=== PATIENT | female | born 1990 | race Caucasian/White ===

== ENCOUNTER 2016-12-07 20:20 | Emergency (ER) | payer OTHER ==
[2016-12-07 20:25] VITALS: BP 124/72
--- NOTE | 2016-12-07 20:41 | UC ---
UC General HPI - HPI Summary HPI Summary: compliant of rash that started on her right leg approx 1 week ago since then has spread to her arms and right leg and chest extremely itchy sometimes rash gets bubbly and oozes clear fluid used calamine lotion, bnadrul and cortisone cream without relief denies fever denies any new foods, medications, soaps and detergents - History of Current Complaint Chief Complaint: UCSkin Stated Complaint: HIVES/RASH Hx Obtained From: Patient Hx Last Menstrual Period: 12/01/16 - Allergy/Home Medications Allergies/Adverse Reactions: Allergies Allergy/AdvReac Type Severity Reaction Status Date / Time Cefaclor [From Ceclor] Allergy Severe Hives Verified 08/25/15 20:27 Penicillins Allergy Severe Hives Verified 08/25/15 20:27 Sulfa Drugs Allergy Severe Difficulty Verified 08/25/15 20:27 Breathing Sulfamethoxazole Allergy Severe Anaphylatic Verified 08/25/15 20:27 w/Trimethoprim Shock [From Bactrim] PMH/Surg Hx/FS Hx/Imm Hx Previously Healthy: Yes Other History Of: Negative For: Anticoagulant Therapy - Surgical History Surgical History: Yes Surgery Procedure, Year, and Place: X2, lizette. TUBAL LIGATION - Family History Known Family History: Positive: Hypertension, Diabetes Negative: Cardiac Disease - Social History Occupation: Employed Full-time Lives: With Family Alcohol Use: Occasionally Substance Use Type: None Smoking Status (MU): Former Smoker Have You Smoked in the Last Year: No Household Exposure Type: Cigarettes - Immunization History Most Recent Influenza Vaccination: 2014 Most Recent Tetanus Shot: 2013 Most Recent Pneumonia Vaccination: na Review of Systems Constitutional: Negative Skin: Rash Eyes: Negative ENT: Negative Respiratory: Negative Cardiovascular: Negative Gastrointestinal: Negative Genitourinary: Negative Motor: Negative Neurovascular: Negative Musculoskeletal: Negative Neurological: Negative Psychological: Negative All Other Systems Reviewed And Are Negative: Yes Physical Exam Triage Information Reviewed: Yes Appearance: No Pain Distress, Well-Nourished, Obese Vital Signs: Initial Vital Signs Temp 98.4 F 12/07/16 20:23 Pulse 86 12/07/16 20:23 Resp 19 12/07/16 20:23 BP 124/72 12/07/16 20:23 Pulse Ox 100 12/07/16 20:23 Vital Signs Reviewed: Yes Eyes: Positive: Conjunctiva Clear ENT: Positive: Pharynx normal, TMs normal Neck: Positive: No Lymphadenopathy Respiratory: Positive: Lungs clear, Normal breath sounds, No respiratory distress, No accessory muscle use Cardiovascular: Positive: RRR, No Murmur, Pulses Normal, Brisk Capillary Refill Abdomen Description: Positive: Nontender, Soft Bowel Sounds: Positive: Present Musculoskeletal Exam: Normal Neurological Exam: Normal Psychological Exam: Normal Skin: Positive: rashes - erythematous rash with some clear vesicles on both legs arms and chest Course/Dx - Course Course Of Treatment: exam completed. rash apperasr to be contact dermatitis from poison jo. will start prednisone for treatment and will followup with PCP. will dispense benadryl for tonight until she can start prednisone in the morning - Differential Dx - Multi-Symptom Provider Diagnoses: contact dermatitis Discharge - Discharge Plan Condition: Stable Disposition: HOME Prescriptions: predniSONE TAB* [Deltasone TAB*] 50 mg PO DAILY #5 tab Patient Education Materials: Poison Jo (ED) Referrals: Elijah Castellano MD [Primary Care Provider] - Additional Instructions: Please start prednisone as directed Increase fluids and rest Take acetaminophen or ibuprofen for fever or pain Please review your discharge instructions. If your symptoms do not improve please call your primary care provider or return to urgent care.
[2016-12-07] MEDS ORDERED: diPHENhydraMINE PO* 25 MG PO ONE ×2 (20:45→20:46)
== END 2016-12-07 21:08 | disposition home or self-care (01) ==
LOC: UCEAST 20:20
DX: L25.5 Unspecified contact dermatitis due to plants, except food (principal); Z72.0 Tobacco use
CPT/HCPCS: 99212; A9270-GY; G0463

== ENCOUNTER 2017-01-04 15:17 | Emergency (ER) | payer OTHER ==
--- NOTE | 2017-01-04 15:36 | UC ---
Upper Extremity HPI - HPI Summary HPI Summary: 26 YEAR OLD FEMALE PRESENTS WITH COMPLAINS OF LEFT ELBOW, HAND AND WRIST PAIN POST FALL. - History of Current Complaint Chief Complaint: UCUpperExtremity Stated Complaint: ARM INJURY Time Seen by Provider: 01/04/17 15:34 Hx Obtained From: Patient Hx Last Menstrual Period: one month ago Onset/Duration: Sudden Onset Severity Initially: Moderate Severity Currently: Moderate Pain Scale Used: 0-10 Numeric - 5 Character: Sharp Aggravating Factor(s): Movement, Lifting, Flexion Alleviating Factor(s): Nothing Associated Signs And Symptoms: Positive: Negative - Allergies/Home Medications Allergies/Adverse Reactions: Allergies Allergy/AdvReac Type Severity Reaction Status Date / Time Cefaclor [From Ceclor] Allergy Severe Hives Verified 01/04/17 15:31 Penicillins Allergy Severe Hives Verified 01/04/17 15:31 Sulfa Drugs Allergy Severe Difficulty Verified 01/04/17 15:31 Breathing Sulfamethoxazole Allergy Severe Anaphylatic Verified 01/04/17 15:31 w/Trimethoprim Shock [From Bactrim] PMH/Surg Hx/FS Hx/Imm Hx Previously Healthy: Yes Other History Of: Negative For: Anticoagulant Therapy - Surgical History Surgical History: Yes Surgery Procedure, Year, and Place: X2, lizette. TUBAL LIGATION - Family History Known Family History: Positive: Hypertension, Diabetes Negative: Cardiac Disease - Social History Alcohol Use: Occasionally Substance Use Type: None Smoking Status (MU): Former Smoker Have You Smoked in the Last Year: No Household Exposure Type: Cigarettes - Immunization History Most Recent Influenza Vaccination: 2014 Most Recent Tetanus Shot: 2013 Most Recent Pneumonia Vaccination: na Review of Systems Constitutional: Negative Skin: Negative Eyes: Negative ENT: Negative Respiratory: Negative Cardiovascular: Negative Gastrointestinal: Negative Genitourinary: Negative Motor: Negative Neurovascular: Negative Musculoskeletal: Other: - LEFT ELBOW PAIN LEFT WRIST PAIN LEFT HAND PAIN Neurological: Negative Psychological: Negative All Other Systems Reviewed And Are Negative: Yes Physical Exam Triage Information Reviewed: Yes Vital Signs: Initial Vital Signs Temp 36.7 C 01/04/17 15:26 Pulse 93 01/04/17 15:26 Resp 18 01/04/17 15:26 Pulse Ox 100 01/04/17 15:26 Eye Exam: Normal ENT Exam: Normal Dental Exam: Normal Neck exam: Normal Neck: Positive: 1 Respiratory Exam: Normal Cardiovascular Exam: Normal Abdominal Exam: Normal Musculoskeletal: Positive: Other: - LEFT ELBOW PAIN LEFT WRIST PAIN LEFT HAND PAIN Neurological Exam: Normal Psychological Exam: Normal Skin Exam: Normal Upper Extremity Course/Dx - Differential Dx/Diagnosis Provider Diagnoses: LEFT HAND, WRIST, AND ELBOW PAIN Discharge - Discharge Plan Condition: Stable Disposition: HOME Prescriptions: Meloxicam [Mobic] 7.5 mg PO BID PC #30 tab Patient Education Materials: Elbow Sprain (ED), Wrist Sprain (ED) Referrals: Zuhair Haas MD [Medical Doctor] - Elijah Castellano MD [Primary Care Provider] -
--- NOTE | 2017-01-04 16:22 | RAD ---
Indication: Left elbow injury. 4 views of left elbow demonstrates no fracture. No joint effusion is identified. No other fractures are noted. IMPRESSION: No fracture of the left elbow is noted.
--- NOTE | 2017-01-04 16:23 | RAD ---
Indication: Indication: Left wrist pain. 3 views of left wrist demonstrates no fracture. No other bone or joint abnormality is noted. IMPRESSION: No fracture of left wrist is noted.
--- NOTE | 2017-01-04 16:23 | RAD ---
Indication: Left hand pain. 4 views of left hand demonstrates no fracture. No other bone or joint abnormality is identified. IMPRESSION: No fracture of the left hand is noted.
== END 2017-01-04 16:38 | disposition home or self-care (01) ==
LOC: UCEAST 15:17
DX: M25.532 Pain in left wrist (principal); M79.642 Pain in left hand; M25.522 Pain in left elbow; Z88.3 Allergy status to other anti-infective agents; Z88.0 Allergy status to penicillin; Z88.2 Allergy status to sulfonamides; Z87.891 Personal history of nicotine dependence
CPT/HCPCS: 99213; G0463

== ENCOUNTER 2017-04-02 17:43 | Emergency (ER) | payer SELFPAY ==
[2017-04-02 17:53] VITALS: BP 124/71
--- NOTE | 2017-04-02 18:10 | UC ---
Lower Extremity/Ankle HPI - HPI Summary HPI Summary: Pt presents after falling at approx 1700. She tells me that she was preparing dinner while her children were playing in the other room. Apparently during this time one of the children had "flooded" the other room. When she went to investigate she slipped on the floor, twisted her left knee and ankle, and landed on her left knee and ankle. She did not hit her head or experience LOC. She was unable to get up off the floor, so she called her father who came and helped her and brought her to . She is unable to bear weight due to left knee pain. She denies previous injury to this extremity, numbness, or tingling. - History of Current Complaint Chief Complaint: UCLowerExtremity Stated Complaint: FALL Time Seen by Provider: 04/02/17 18:01 Hx Obtained From: Patient Hx Last Menstrual Period: 2months ago, hx of tubal ?: No Onset/Duration: Sudden Onset Severity Initially: Severe Severity Currently: Severe Pain Intensity: 8 Pain Scale Used: 0-10 Numeric Aggravating Factor(s): Standing, Ambulation Alleviating Factor(s): Rest, Ice Able to Bear Weight: No - Allergies/Home Medications Allergies/Adverse Reactions: Allergies Allergy/AdvReac Type Severity Reaction Status Date / Time Cefaclor [From Ceclor] Allergy Severe Hives Verified 04/02/17 17:51 Penicillins Allergy Severe Hives Verified 04/02/17 17:51 Sulfa Drugs Allergy Severe Difficulty Verified 04/02/17 17:51 Breathing Sulfamethoxazole Allergy Severe Anaphylatic Verified 04/02/17 17:51 w/Trimethoprim Shock [From Bactrim] PMH/Surg Hx/FS Hx/Imm Hx Previously Healthy: Yes Other History Of: Negative For: Anticoagulant Therapy - Surgical History Surgical History: Yes Surgery Procedure, Year, and Place: X2, liz[place]. TUBAL LIGATION - Family History Known Family History: Positive: Hypertension, Diabetes Negative: Cardiac Disease - Social History Occupation: Employed Full-time Lives: With Family Alcohol Use: Occasionally Substance Use Type: None Smoking Status (MU): Former Smoker Have You Smoked in the Last Year: No Household Exposure Type: Cigarettes - Immunization History Most Recent Influenza Vaccination: 2014 Most Recent Tetanus Shot: 2013 Most Recent Pneumonia Vaccination: na Review of Systems Constitutional: Negative Skin: Other - Abrasion to left knee Respiratory: Negative Cardiovascular: Negative Gastrointestinal: Negative Neurovascular: Negative Musculoskeletal: Decreased ROM - Left knee and ankle, Edema - Left knee and ankle, Other: - Pain Left knee and ankle Neurological: Negative Psychological: Negative All Other Systems Reviewed And Are Negative: Yes Physical Exam Triage Information Reviewed: Yes Completion Of Physical Exam Limited Due To: Other - Pain Appearance: Pain Distress, Obese Vital Signs: Initial Vital Signs Temp 98.7 F 04/02/17 17:46 Pulse 96 04/02/17 17:46 Resp 16 04/02/17 17:46 BP 124/71 04/02/17 17:46 Pulse Ox 100 04/02/17 17:46 Vital Signs Reviewed: Yes Neck: Positive: Supple, Nontender, No Lymphadenopathy, Other: - FROM. NTTP. Respiratory: Positive: Chest non-tender, Lungs clear, Normal breath sounds, No respiratory distress, No accessory muscle use Cardiovascular: Positive: RRR, No Murmur, Pulses Normal Musculoskeletal: Positive: Strength Limited @ - Left knee and ankle due to pain , ROM Limited @ - Left knee and ankle. Can flex and extend ~20 deg before pain. , Edema @ - Left knee and ankle, mild., Other: - Unable to performed specialized tests due to pain. No bovious bony deformities of knee or ankle. TTP medial left knee and medial left ankle. Neurological: Positive: Alert, Other: - Sensations intact L2-S1 Psychological: Positive: Age Appropriate Behavior Skin: Positive: Other - Approx 1.5cm diameter superficial abrasion to left anterior knee Lower Extremity Course/Dx - Course Course Of Treatment: XR left knee, leg, and ankle - soft tissue swelling ankle, otherwise negative. Ibuprofen 600mg here. Tdap updated today. Pt does not want anything stronger for pain and does not want time off work. Will send an rx for a knee brace for added support. - Differential Dx/Diagnosis Differential Diagnosis/HQI/PQRI: Contusion, Dislocation, Fracture (Closed), Sprain, Strain Provider Diagnoses: Left knee sprain. Left ankle sprain. Left knee abrasion. Fall Discharge - Discharge Plan Condition: Stable Disposition: HOME Prescriptions: Elastic Bandages & Supports [Knee Brace/Cushion/l/Xl/l] 1 mis XX ONCE PRN #1 mis PRN Reason: Pain Patient Education Materials: Ankle Sprain (ED), Knee Sprain (ED) Referrals: Elijah Castellano MD [Primary Care Provider] - Svitlana Gupta MD [Medical Doctor] - If Needed Additional Instructions: 1) Rest, Ice, and elevate your knee. Walk and weight bear as tolerated. 2) Ibuprofen 600mg every 6 hours as needed for pain 3) If your symptoms persist - please call orthopedics at the number below to schedule a follow up. If you develop a fever, SOB, chest pain, new or worsening symptoms - please call your PCP or go to the ED.
[2017-04-02] MEDS ORDERED: Ibuprofen TAB* 600 MG PO ONE (18:41)
[2017-04-02] MEDS ORDERED: Tetan/Diph/Pertus SYR(Tdap)* 0.5 ML SYR(BOOSTRIX) use SYR IM ONE ×2 (18:48→18:49)
--- NOTE | 2017-04-02 18:49 | RAD ---
INDICATION: Left ankle injury. TECHNIQUE: 3 views of the left ankle were obtained. FINDINGS: There is diffuse soft tissue swelling present. No fracture is seen. Joint spaces appear maintained. IMPRESSION: SOFT TISSUE SWELLING, NO FRACTURE IS SEEN. IF THE PATIENT'S SYMPTOMS PERSIST RECOMMEND FOLLOW-UP IMAGING.
--- NOTE | 2017-04-02 18:50 | RAD ---
INDICATION: Left lower leg injury. TECHNIQUE: 2 views of the left lower leg were obtained. FINDINGS: The bones are normal alignment. No fracture is seen. IMPRESSION: NO EVIDENCE OF FRACTURE.
--- NOTE | 2017-04-02 18:51 | RAD ---
INDICATION: Left knee injury. TECHNIQUE: 4 views of the left knee were obtained. FINDINGS: The bones are in normal alignment. No joint effusion or fracture is seen. Joint spaces appear maintained. IMPRESSION: NO EVIDENCE FOR FRACTURE.
== END 2017-04-02 19:18 | disposition home or self-care (01) ==
LOC: UCEAST 17:43
DX: S93.402A Sprain of unspecified ligament of left ankle, initial encounter (principal); S80.212A Abrasion, left knee, initial encounter; S83.92XA Sprain of unspecified site of left knee, initial encounter; W01.0XXA Fall on same level from slipping, tripping and stumbling without subsequent striking against object, initial encounter; Y93.01 Activity, walking, marching and hiking; Y92.009 Unspecified place in unspecified non-institutional (private) residence as the place of occurrence of the external cause; Y99.9 Unspecified external cause status; Z87.891 Personal history of nicotine dependence
CPT/HCPCS: 90471; 90715; 99212; A9270-GY; G0463

== ENCOUNTER 2017-07-23 19:48 | Emergency (ER) | payer OTHER ==
[2017-07-23 19:56] VITALS: BP 117/77
--- NOTE | 2017-07-23 19:58 | UC ---
Lower Extremity/Ankle HPI - HPI Summary HPI Summary: Pt presents with left foot pain. She tells me that 4 days ago she dropped a suitcase on the top of her left foot and has had pain since that time. She is able to ambulate, but has a mild limp due to pain. Has been taking ibuprofen with mild relief. Denies numbness or tingling. - History of Current Complaint Chief Complaint: UCLowerExtremity Stated Complaint: L FOOT PAIN Time Seen by Provider: 07/23/17 19:57 Hx Obtained From: Patient Hx Last Menstrual Period: one month ago Onset/Duration: Sudden Onset Severity Initially: Moderate Severity Currently: Moderate Pain Intensity: 6 Pain Scale Used: 0-10 Numeric Aggravating Factor(s): Standing, Ambulation Able to Bear Weight: Yes - Allergies/Home Medications Allergies/Adverse Reactions: Allergies Allergy/AdvReac Type Severity Reaction Status Date / Time cefaclor [From Ceclor] Allergy Hives Verified 07/23/17 19:57 Penicillins Allergy Hives Verified 07/23/17 19:57 sulfamethoxazole Allergy Anaphylatic Verified 07/23/17 19:57 [From Bactrim] Shock trimethoprim [From Bactrim] Allergy Anaphylatic Verified 07/23/17 19:57 Shock Home Medications: Home Medications NK [No Home Medications Reported] 07/23/17 [History Confirmed 07/23/17] PMH/Surg Hx/FS Hx/Imm Hx Previously Healthy: Yes Other History Of: Negative For: Anticoagulant Therapy - Surgical History Surgical History: Yes Surgery Procedure, Year, and Place: X2, lizette. TUBAL LIGATION - Family History Known Family History: Positive: Hypertension, Diabetes Negative: Cardiac Disease - Social History Occupation: Employed Full-time Lives: With Family Alcohol Use: Occasionally Substance Use Type: None Smoking Status (MU): Former Smoker Have You Smoked in the Last Year: No Household Exposure Type: Cigarettes - Immunization History Most Recent Influenza Vaccination: 2014 Most Recent Tetanus Shot: 2013 Most Recent Pneumonia Vaccination: na Review of Systems Constitutional: Negative Skin: Negative Respiratory: Negative Cardiovascular: Negative Gastrointestinal: Negative Neurovascular: Negative Musculoskeletal: Other: - Left foot pain Neurological: Negative Psychological: Negative All Other Systems Reviewed And Are Negative: Yes Physical Exam - Summary Physical Exam Summary: GENERAL: NAD. WDWN. No pain distress. SKIN: No rashes, sores, ulcers, masses, lesions. NECK: Supple. Nontender. No lymphadenopathy. CHEST: CTAB. No r/r/w. No accessory muscle use. Breathing comfortably and in no distress. CV: RRR. Without m/r/g. Pulses intact PT and DP. Brisk cap refill. MSK: Left dorsal midfoot TTP. No 5th MT pain. Strength 5/5. No edema or obvious bony deformities. Negative talar tilt. No increased laxity. Negative [place] test. NEURO: Alert. Sensations intact and symmetric B/L LEs PSYCH: Age appropriate behavior. Triage Information Reviewed: Yes Vital Signs: Initial Vital Signs Temp 98.8 F 07/23/17 19:52 Pulse 90 07/23/17 19:52 Resp 18 07/23/17 19:52 BP 117/77 07/23/17 19:52 Pulse Ox 100 07/23/17 19:52 Lower Extremity Course/Dx - Course Course Of Treatment: XR: IMPRESSION: NORMAL LEFT FOOT RADIOGRAPH WITHOUT SIGNIFICANT CHANGE WHEN COMPARED TO THE. MAY 20, 2012 FOOT RADIOGRAPH. Placed in CAM boot. Advised RICE and continue with ibuprofen. F/u with ortho if needed. - Differential Dx/Diagnosis Provider Diagnoses: Left foot contusion Discharge - Discharge Plan Condition: Stable Disposition: HOME Patient Education Materials: Foot Contusion (ED) Forms: *Work Release Referrals: Elijah Castellano MD [Primary Care Provider] - Gómez Solares MD [Medical Doctor] - If Needed Additional Instructions: If you develop a fever, shortness of breath, chest pain, new or worsening symptoms - please call your PCP or go to the ED. 1) Rest, Ice, and Elevate your foot as much as possible 2) May continue to take ibuprofen 600-800mg every 6-8hours as needed for pain and swelling 3) Use the walking boot for comfort 4) If your symptoms worsen or persist - please call Orthopedics at the number below to schedule a follow up appointment.
--- NOTE | 2017-07-23 20:36 | RAD ---
INDICATION: Left foot pain after dropping a suitcase on the foot for days earlier COMPARISON: Left foot radiograph dated May 20, 2012 TECHNIQUE: 3 views of the left foot were obtained. FINDINGS: The adequately corticated bones are properly aligned. Joint spaces appear maintained. The space between the first and second metatarsals measures up to 3.6 mm essentially unchanged since the May 20, 2012 foot radiograph. No fracture, dislocation or focal bony abnormality is seen. IMPRESSION: NORMAL LEFT FOOT RADIOGRAPH WITHOUT SIGNIFICANT CHANGE WHEN COMPARED TO THE MAY 20, 2012 FOOT RADIOGRAPH. If the patient's symptoms persist, follow-up imaging is recommended.
== END 2017-07-23 21:00 | disposition home or self-care (01) ==
LOC: UCEAST 19:48
DX: S90.32XA Contusion of left foot, initial encounter (principal); W20.8XXA Other cause of strike by thrown, projected or falling object, initial encounter; Y93.9 Activity, unspecified; Y92.9 Unspecified place or not applicable; Z88.1 Allergy status to other antibiotic agents; Z88.0 Allergy status to penicillin; Z88.2 Allergy status to sulfonamides; Z87.891 Personal history of nicotine dependence
CPT/HCPCS: 99211; G0463

== ENCOUNTER 2017-10-11 19:57 | Emergency (ER) | payer OTHER ==
[2017-10-11 20:33] VITALS: BP 127/71
[2017-10-11] MEDS ORDERED: Azithromycin TAB* 250 MG PO ONE (21:11)
--- NOTE | 2017-10-11 21:22 | UC ---
Throat Pain/Nasal [place] HPI - HPI Summary HPI Summary: PATIENT PRESENTS COMPLAINING OF SEVERAL DAYS OF SORE THROAT, PAIN WITH SWALLOWING AND COUGH. HAS HAD SEVERAL EPISODES OF POSTTUSSIVE VOMITING. IS CONCERNED ABOUT STREP IT IS GOING AROUND HER SON'S SCHOOL. SHE DENIES ANY FEVER OR EAR PAIN. - History of Current Complaint Chief Complaint: UCGeneralIllness Stated Complaint: COUGH,HEADACHE,DIZZY,CHILLS Time Seen by Provider: 10/11/17 20:52 Hx Obtained From: Patient Hx Last Menstrual Period: states irregular periods Onset/Duration: Gradual Onset, Lasting Days, Still Present Severity: Moderate Pain Intensity: 0 Pain Scale Used: 0-10 Numeric Cough: Nonproductive Associated Signs & Symptoms: Positive: Hoarseness, Vomiting. Negative: Fever - Allergies/Home Medications Allergies/Adverse Reactions: Allergies Allergy/AdvReac Type Severity Reaction Status Date / Time cefaclor [From Ceclor] Allergy Hives Verified 10/11/17 20:24 Penicillins Allergy Hives Verified 10/11/17 20:24 sulfamethoxazole Allergy Anaphylatic Verified 10/11/17 20:24 [From Bactrim] Shock trimethoprim [From Bactrim] Allergy Anaphylatic Verified 10/11/17 20:24 Shock PMH/Surg Hx/FS Hx/Imm Hx Previously Healthy: Yes Other History Of: Negative For: Anticoagulant Therapy - Surgical History Surgical History: Yes Surgery Procedure, Year, and Place: X2, lizette. TUBAL LIGATION - Family History Known Family History: Positive: Hypertension, Diabetes Negative: Cardiac Disease - Social History Alcohol Use: Occasionally Substance Use Type: None Smoking Status (MU): Former Smoker Have You Smoked in the Last Year: No Household Exposure Type: Cigarettes - Immunization History Most Recent Influenza Vaccination: 2014 Most Recent Tetanus Shot: 2013 Most Recent Pneumonia Vaccination: na Review of Systems Constitutional: Negative ENT: Sore Throat Respiratory: Cough Cardiovascular: Negative Gastrointestinal: Vomiting Neurological: Headache All Other Systems Reviewed And Are Negative: Yes Physical Exam Triage Information Reviewed: Yes Appearance: Well-Appearing, No Pain Distress, Well-Nourished Vital Signs: Initial Vital Signs Temp 98.1 F 10/11/17 20:24 Pulse 86 10/11/17 20:24 Resp 18 10/11/17 20:24 BP 127/71 10/11/17 20:24 Pulse Ox 100 10/11/17 20:24 Vital Signs Reviewed: Yes Eyes: Positive: Conjunctiva Clear ENT: Positive: Hearing grossly normal, Pharynx normal, TMs normal, Hoarse voice Neck: Positive: Supple, Nontender, No Lymphadenopathy Respiratory Exam: Normal Cardiovascular Exam: Normal Abdomen Description: Positive: Soft Musculoskeletal: Positive: No Edema Neurological: Positive: Alert Psychological: Positive: Age Appropriate Behavior Skin: Negative: rashes Diagnostics - Laboratory Diagnostic Studies Completed/Ordered: RAPID STREP POSITIVE Throat Pain/Nasal Course/Dx - Differential Dx/Diagnosis Provider Diagnoses: STREP PHARYNGITIS Discharge - Sign-Out/Discharge Documenting (check all that apply): Discharge/Admit/Transfer - Discharge Plan Condition: Stable Disposition: HOME Prescriptions: Azithromycin 250 mg PO DAILY #4 tablet Patient Education Materials: Strep Throat (ED) Forms: *Work Release Referrals: No Primary Care Phys,NOPCP [Primary Care Provider] - Additional Instructions: STREP TEST POSITIVE OTC CHLORASEPTIC OR CEPACOL LOZENGES AND/OR IBUPROFEN FOR SORE THROAT NEEDED ONCE SYMPTOMS RESOLVED - NEW TOOTHBRUSH DO NOT SHARE FOOD, DRINK, UTENSILS CALL THE NUMBER BELOW FOR ASSISTANCE IN ESTABLISHING WITH A PCP An additional resource available to assist in finding the appropriate physician for your health care needs is the [facility] ([facility]). You may contact them by calling [phone]. - Billing Disposition and Condition Condition: STABLE Disposition: Home
== END 2017-10-11 21:20 | disposition home or self-care (01) ==
LOC: UCEAST 19:57
DX: J02.0 Streptococcal pharyngitis (principal); Z88.1 Allergy status to other antibiotic agents; Z88.0 Allergy status to penicillin; Z88.2 Allergy status to sulfonamides; Z82.49 Family history of ischemic heart disease and other diseases of the circulatory system; Z83.3 Family history of diabetes mellitus; Z87.891 Personal history of nicotine dependence
CPT/HCPCS: 87651; 99202; A9270-GY; G0463

== ENCOUNTER 2017-11-21 12:30 | Emergency (ER) | payer OTHER ==
[2017-11-21 12:41] VITALS: BP 125/76
--- NOTE | 2017-11-21 13:25 | UC ---
Skin Complaint HPI - HPI Summary HPI Summary: 27 yo female c/o itching all over, progressively worse, starting in upper inner thighs. No fever / chills. No c/o mouth sores. No sob / cp. No GI sx. Denies vaginal discharge. [facility]en [facility] little over one week ago (d/ t menstrual abnormality, denies , + hx btl), reports no issues at that time, sx started a day or two later. No abd pain. - History of Current Complaint Chief Complaint: UCRash Stated Complaint: RASH Hx Obtained From: Patient Hx Last Menstrual Period: 08/2017, irregular Pain Intensity: 0 - Allergy/Home Medications Allergies/Adverse Reactions: Allergies Allergy/AdvReac Type Severity Reaction Status Date / Time cefaclor [From Ceclor] Allergy Hives Verified 11/21/17 12:36 Penicillins Allergy Hives Verified 11/21/17 12:36 sulfamethoxazole Allergy Anaphylatic Verified 11/21/17 12:36 [From Bactrim] Shock trimethoprim [From Bactrim] Allergy Anaphylatic Verified 11/21/17 12:36 Shock Home Medications: Home Medications diphenhydrAMINE HCl [Benadryl Allergy 25 MG CAP] 25 mg PO ONCE 11/21/17 [ History Confirmed 11/21/17] Review of Systems Constitutional: Negative Skin: Other - see hpi Eyes: Negative ENT: Negative Respiratory: Negative Cardiovascular: Negative Gastrointestinal: Negative Genitourinary: Negative Motor: Negative Neurovascular: Negative Musculoskeletal: Negative Neurological: Negative Psychological: Negative Is Patient Immunocompromised?: No All Other Systems Reviewed And Are Negative: Yes PMH/Surg Hx/FS Hx/Imm Hx Previously Healthy: Yes Other History Of: Negative For: Anticoagulant Therapy - Surgical History Surgical History: Yes Surgery Procedure, Year, and Place: X2, liz[place]. TUBAL LIGATION - Family History Known Family History: Positive: Unknown - unknown - adopted Negative: Cardiac Disease - Social History Alcohol Use: Occasionally Substance Use Type: None Smoking Status (MU): Former Smoker Have You Smoked in the Last Year: No Household Exposure Type: Cigarettes - Immunization History Most Recent Influenza Vaccination: 2014 Most Recent Tetanus Shot: 2013 Most Recent Pneumonia Vaccination: na Physical Exam Triage Information Reviewed: Yes Appearance: Well-Appearing - looks tired but NAD, Well-Nourished Vital Signs: Initial Vital Signs Temp 97.8 F 11/21/17 12:37 Pulse 79 11/21/17 12:37 Resp 18 11/21/17 12:37 BP 125/76 11/21/17 12:37 Pulse Ox 100 11/21/17 12:37 Vital Signs Reviewed: Yes Eye Exam: Normal ENT Exam: Normal - grossly normal. no akil sores. Neck exam: Normal - no pain c/o Respiratory Exam: Normal - no tachypnea, no dyspnea Cardiovascular Exam: Normal - heart rate regular, non-diaphoretic Abdominal Exam: Normal - nontender Pelvic Exam: Positive: Other - Declined pelvic exam. External exam noteworthy for dermatitis inner upper thighs. Vulva edematous, mild red, no visible sores. Clear - white discharge noted at external vaginal vault. Musculoskeletal Exam: Normal Neurological Exam: Normal - grossly nonfocal Psychological Exam: Normal - conversing easily and appropriately Skin Exam: Other - see pelvic. Several areas of dermatitis, c/w allergic type dermatitis (no dotes, ulcers, tracks, mac-pap, etc), mostly located abd wall fold, neck, face cheeks. Not c/w cellulitis. Course/Dx - Course Course Of Treatment: Declined internal pelvic exam. Suspect vaginitis, consider bact vaginosis. Will rx metrogel and diflucan. Re pruritus - medrol dose pack, d/w pt. D/w pt the need for f/u - fabi if worse or new problems. - Diagnoses Provider Diagnoses: Dermatitis. Vaginitis Discharge - Sign-Out/Discharge Documenting (check all that apply): Patient Departure - Discharge Plan Condition: Stable Disposition: HOME Prescriptions: Fluconazole 150 MG (NF) [Diflucan 150 mg (NF)] 150 mg PO DAILY #5 tab methylPREDNISolone [Medrol] 4 mg PO DAILY #1 tab.ds.pk metroNIDAZOLE VAGINAL 0.75%* 1 applic VAGINAL BEDTIME 7 Days #1 tube Patient Education Materials: Antihistamine (By mouth), Vaginitis (ED), General Allergic Reaction (ED) Referrals: [facility] [Outside] Melvin Horton MD [Medical Doctor] - Additional Instructions: Follow up with a primary care physician, if possible in the next month. 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 Seek medical attention for worse or new problems. - Billing Disposition and Condition Condition: STABLE Disposition: Home
== END 2017-11-21 13:52 | disposition home or self-care (01) ==
LOC: UCEAST 12:30
DX: L30.9 Dermatitis, unspecified (principal); N76.0 Acute vaginitis; Z88.0 Allergy status to penicillin; Z88.1 Allergy status to other antibiotic agents; Z88.2 Allergy status to sulfonamides; Z87.891 Personal history of nicotine dependence
CPT/HCPCS: 99212; G0463

== ENCOUNTER 2017-12-25 20:10 | Emergency (ER) | payer OTHER ==
[2017-12-25] MEDS ORDERED: Ibuprofen TAB* 400 MG PO ONE (21:14)
[2017-12-25] MEDS ORDERED: Ondansetron ODT TAB* 4 MG PO ONE (21:14)
[2017-12-25] MEDS ORDERED: oxyCODONE/Acetamin 5/325 MG* TAB PO ONE (21:14)
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
[2017-12-25 22:43] VITALS: BP 120/83
--- NOTE | 2017-12-26 07:53 | RAD ---
INDICATION: Lumbar level back pain COMPARISON: None. TECHNIQUE: 4 views of the lumbar spine were obtained. FINDINGS: The vertebra are in normal alignment. No fracture is seen. Disc spaces appear maintained. IMPRESSION: No evidence of fracture or subluxation. R1
== END 2017-12-25 23:07 | disposition home or self-care (01) ==
LOC: ED 20:10
DX: S06.0X9A Concussion with loss of consciousness of unspecified duration, initial encounter (principal); S33.5XXA Sprain of ligaments of lumbar spine, initial encounter; Z87.891 Personal history of nicotine dependence; W50.0XXA Accidental hit or strike by another person, initial encounter; Y93.64 Activity, baseball; Y92.9 Unspecified place or not applicable
CPT/HCPCS: 70450; 72100; 99283; A9270-GY

== ENCOUNTER 2018-05-17 18:28 | Emergency (ER) | payer OTHER ==
[2018-05-17 19:04] VITALS: BP 125/80
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
--- NOTE | 2018-05-18 10:48 | UC ---
- EKG/XRAY/CT Xray Comments: wet read correct Course/Dx - Diagnoses Provider Diagnoses: Left wrist tendonitis Discharge - Sign-Out/Discharge Documenting (check all that apply): Post-Discharge Follow Up All imaging exams completed and their final reports reviewed: Yes - Discharge Plan Condition: Stable Disposition: HOME Patient Education Materials: Tendinitis (ED) Referrals: Gómez Solares MD [Medical Doctor] - Chaya Laurent MD [Medical Doctor] - Additional Instructions: FOLLOW UP WITH SPORTS MEDICINE OR ORTHOPEDICS IF NOT COMPLETELY IMPROVED. GET RECHECKED FOR ANY WORSENING OF YOUR CONDITION OR QUESTIONS OR CONCERNS. THE RADIOLOGIST READING FOR YOUR X-RAY WILL BE DONE TOMORROW. IF THERE IS ANY CHANGE IN THE X-RAY, WE WILL CALL YOU WITH THE FINAL RESULTS. - Billing Disposition and Condition Condition: STABLE Disposition: Home
== END 2018-05-17 20:44 | disposition home or self-care (01) ==
LOC: UCEAST 18:28
DX: M65.842 Other synovitis and tenosynovitis, left hand (principal); Z88.1 Allergy status to other antibiotic agents; Z88.0 Allergy status to penicillin; Z88.2 Allergy status to sulfonamides; Z87.891 Personal history of nicotine dependence
CPT/HCPCS: 99212; G0463

== ENCOUNTER 2018-07-25 17:42 | Emergency (ER) | payer OTHER ==
[2018-07-25 18:51] VITALS: BP 141/83
[2018-07-25] MEDS ORDERED: Ibuprofen TAB* 600 MG PO ONE (18:54)
[2018-07-25] MEDS ORDERED: Silver Sulfadiazine 1%* 20 GM ONE (20:39)
[2018-07-25] MEDS ORDERED: Silver Sulfadiazine 1%* 20 GM TOPICAL ONE (20:57)
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
== END 2018-07-25 21:10 | disposition home or self-care (01) ==
LOC: UCEAST 17:42
DX: T21.22XA Burn of second degree of abdominal wall, initial encounter (principal); X10.2XXA Contact with fats and cooking oils, initial encounter; Y93.G3 Activity, cooking and baking; Y92.9 Unspecified place or not applicable; Z88.1 Allergy status to other antibiotic agents; Z88.0 Allergy status to penicillin; Z88.2 Allergy status to sulfonamides; Z87.891 Personal history of nicotine dependence
CPT/HCPCS: 16020; 99212; A9270-GY; G0463

== ENCOUNTER 2018-07-29 12:34 | Emergency (ER) | payer OTHER ==
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
[2018-07-29 13:15] VITALS: BP 102/60
== END 2018-07-29 13:18 | disposition home or self-care (01) ==
LOC: ED 12:34
DX: T21.22XD Burn of second degree of abdominal wall, subsequent encounter (principal); X10.2XXD Contact with fats and cooking oils, subsequent encounter; Z88.1 Allergy status to other antibiotic agents; Z88.0 Allergy status to penicillin; Z88.2 Allergy status to sulfonamides; Z87.891 Personal history of nicotine dependence
CPT/HCPCS: 99282

== ENCOUNTER 2018-08-16 17:25 | Emergency (ER) | payer OTHER ==
[2018-08-16 18:07] VITALS: BP 132/75
--- NOTE | 2018-08-16 18:32 | UC ---
Respiratory Complaint HPI - HPI Summary HPI Summary: Ms. Conner presents with cough and congestion for about a week. She is using her son's inhaler which helps. - History of Current Complaint Chief Complaint: UCRespiratory Stated Complaint: COUGH Hx Obtained From: Patient Hx Last Menstrual Period: 1 MONTH AGO Onset/Duration: Gradual Onset Severity Initially: Mild Severity Currently: Moderate Pain Intensity: 4 Character: Cough: Nonproductive Alleviating Factors: Bronchodilator Associated Signs And Symptoms: Positive: URI, Nasal Congestion - Allergies/Home Medications Allergies/Adverse Reactions: Allergies Allergy/AdvReac Type Severity Reaction Status Date / Time cefaclor [From Ceclor] Allergy Hives Verified 08/16/18 18:07 Penicillins Allergy Hives Verified 08/16/18 18:07 sulfamethoxazole Allergy Anaphylatic Verified 08/16/18 18:07 [From Bactrim] Shock trimethoprim [From Bactrim] Allergy Anaphylatic Verified 08/16/18 18:07 Shock PMH/Surg Hx/FS Hx/Imm Hx Previously Healthy: Yes Other History Of: Negative For: Anticoagulant Therapy - Surgical History Surgical History: Yes Surgery Procedure, Year, and Place: X2, liz[place]. TUBAL LIGATION - Family History Known Family History: Positive: Unknown - unknown - adopted, Hypertension, Diabetes Negative: Cardiac Disease - Social History Alcohol Use: Occasionally Substance Use Type: None Smoking Status (MU): Former Smoker Amount Used/How Often: 2 cig per day Have You Smoked in the Last Year: No Household Exposure Type: Cigarettes - Immunization History Most Recent Influenza Vaccination: 2014 Most Recent Tetanus Shot: 2013 Most Recent Pneumonia Vaccination: na Review of Systems All Other Systems Reviewed And Are Negative: Yes Constitutional: Positive: Negative ENT: Positive: Sore Throat, Nasal Discharge Respiratory: Positive: Cough Is Patient Immunocompromised?: No Physical Exam - Summary Physical Exam Summary: She is non-toxic in appearance with stable vitals. Triage Information Reviewed: Yes Appearance: Well-Appearing Vital Signs: Initial Vital Signs Temp 98.5 F 08/16/18 18:03 Pulse 86 08/16/18 18:03 Resp 16 08/16/18 18:03 BP 132/75 08/16/18 18:03 Pulse Ox 98 08/16/18 18:03 Vital Signs Reviewed: Yes ENT: Positive: Pharyngeal erythema, Nasal congestion, TMs normal, Sinus tenderness Neck exam: Normal Neck: Positive: Supple, Nontender, No Lymphadenopathy Respiratory Exam: Normal Cardiovascular Exam: Normal Respiratory Course/Dx - Course Course Of Treatment: Ms. Conner has a viral URI and I am going to treat her symptomatically. Since her son's inhaler has seem to help, I will give her one. - Differential Dx/Diagnosis Provider Diagnosis: URI (upper respiratory infection) Discharge - Sign-Out/Discharge Documenting (check all that apply): Patient Departure All imaging exams completed and their final reports reviewed: No Studies - Discharge Plan Condition: Stable Disposition: HOME Patient Education Materials: Upper Respiratory Infection (ED) Referrals: No Primary Care Phys,NOPCP [Primary Care Provider] - - Billing Disposition and Condition Condition: STABLE Disposition: Home
== END 2018-08-16 18:40 | disposition home or self-care (01) ==
LOC: UCEAST 17:25
DX: J06.9 Acute upper respiratory infection, unspecified (principal); Z88.1 Allergy status to other antibiotic agents; Z88.0 Allergy status to penicillin; Z88.2 Allergy status to sulfonamides; Z87.891 Personal history of nicotine dependence
CPT/HCPCS: 99212; G0463

== ENCOUNTER 2018-09-27 21:37 | Emergency (ER) | payer OTHER ==
--- NOTE | 2018-09-27 23:48 | ED ---
Lower Extremity - HPI Summary HPI Summary: 20-year-old female presents with complaints of right foot pain. States she was playing with her children 3 days ago and jumped off a playground structure from a height of about 2-3 feet and had sudden onset of pain to the lateral aspect of her right foot. States she was able to bear weight immediately after the injury however states pain has progressively worsened over the last couple of days making it difficult to bear weight. Denies any swelling, bruising, numbness , or tingling. - History of Current Complaint Chief Complaint: EDExtremitZakiya Stated Complaint: "RIGHT FOOT PAIN PER PT" Time Seen by Provider: 09/27/18 22:50 Hx Obtained From: Patient Hx Last Menstrual Period: 1 MONTH AGO Pain Intensity: 6 - Allergies/Home Medications Allergies/Adverse Reactions: Allergies Allergy/AdvReac Type Severity Reaction Status Date / Time cefaclor [From Ceclor] Allergy Hives Verified 09/27/18 21:45 Penicillins Allergy Hives Verified 09/27/18 21:45 Sulfa (Sulfonamide Allergy Anaphylatic Verified 09/27/18 21:45 Antibiotics) Shock sulfamethoxazole Allergy Anaphylatic Verified 09/27/18 21:45 [From Bactrim] Shock trimethoprim [From Bactrim] Allergy Anaphylatic Verified 09/27/18 21:45 Shock PMH/Surg Hx/FS Hx/Imm Hx Endocrine/Hematology History: Reports: Hx Anemia Denies: Hx Anticoagulant Therapy, Hx Blood Disorders, Hx Blood Transfusions, Hx Bone Marrow Disease, Hx Diabetes, Hx Systemic Lupus Erythematosus, Hx Sickle Cell Disease, Hx Thyroid Disease, Hx Unexplained Bleeding, Other Endocrine/ Hematological Disorders Cardiovascular History: Denies: Hx Hypertension, Hx Pacemaker/ICD Respiratory History: Reports: Hx Seasonal Allergies - on occasion Denies: Hx Asthma, Hx Chronic Obstructive Pulmonary Disease (COPD) GI History: Denies: Hx Ulcer History: Denies: Hx Renal Disease Musculoskeletal History: Denies: Hx Rheumatoid Arthritis, Hx Osteoporosis Sensory History: Reports: Hx Contacts or Glasses - wearing them at present Denies: Hx Hearing Aid Opthamlomology History: Reports: Hx Contacts or Glasses - wearing them at present Neurological History: Denies: Hx Dementia, Hx Developmental Delay, Hx Headaches, Hx Migraine, Hx Nerve Disease, Hx Seizures, Hx Spinal Cord Injury, Hx Transient Ischemic Attacks (TIA), Other Neuro Impairments/Disorders Psychiatric History: Reports: Hx Depression Denies: Hx Anxiety, Hx Attention Deficit Hyperactivity Disorder, Hx Eating Disorder, Hx Panic Disorder, Hx Post Traumatic Stress Disorder, Hx Inpatient Treatment, Hx Community Mental Health Tx, Hx Schizophrenia, Hx Bipolar Disorder , Hx Suicide Attempt, Hx of Violent Episodes Against Others, Hx Substance Abuse , Other Psychiatric Issues/Disorders - Surgical History Surgery Procedure, Year, and Place: X2, lizette. TUBAL LIGATION Hx Anesthesia Reactions: Yes - vomitting - Immunization History Date of Tetanus Vaccine: up to date per pt Infectious Disease History: No Infectious Disease History: Denies: Hx Clostridium Difficile, Hx Hepatitis, Hx Human Immunodeficiency Virus (HIV), Hx of Known/Suspected MRSA, Hx Shingles, Hx Tuberculosis, Hx Known/ Suspected VRE, Hx Known/Suspected VRSA, History Other Infectious Disease, Traveled Outside the [place] in Last 30 Days - Family History Known Family History: Positive: Unknown - unknown - adopted, Hypertension, Diabetes Negative: Cardiac Disease - Social History Occupation: Employed Full-time Lives: With Family Alcohol Use: Occasionally Substance Use Type: Reports: None Smoking Status (MU): Former Smoker Amount Used/How Often: 2 cig per day Have You Smoked in the Last Year: No Review of Systems Constitutional: Negative Cardiovascular: Negative Respiratory: Negative Gastrointestinal: Negative Genitourinary: Negative Musculoskeletal: Other - See HPI Negative: Bruising Neurological: Negative All Other Systems Reviewed And Are Negative: Yes Physical Exam - Summary Physical Exam Summary: GENERAL APPEARANCE: Well developed, well nourished, alert and cooperative, and appears to be in no acute distress. CARDIAC: Normal S1 and S2. No S3, S4 or murmurs. Rhythm is regular. There is no peripheral edema, cyanosis or pallor. Extremities are warm and well perfused. Capillary refill is less than 2 seconds. Peripheral pulses intact. LUNGS: Clear to auscultation without rales, rhonchi, wheezing or diminished breath sounds. ABDOMEN: Positive bowel sounds. Soft, nondistended, nontender. No guarding or rebound. No masses or hepatosplenomegally. MUSKULOSKELETAL: Normal muscular development. EXTREMITIES: Tenderness over the 4th and 5th metatarsals of the right foot without gross deformity, ecchymosis, or erythema. Right ankle non-tender with full ROM. Circulation and sensation intact. SKIN: Skin normal color, texture and turgor with no lesions or eruptions. Triage Information Reviewed: Yes Vital Signs On Initial Exam: Initial Vitals Temp Pulse Resp BP Pulse Ox 98.4 F 93 14 125/80 98 09/27/18 21:43 09/27/18 21:43 09/27/18 21:43 09/27/18 21:43 09/27/18 21:43 Vital Signs Reviewed: Yes Diagnostics - Vital Signs Vital Signs Temp Pulse Resp BP Pulse Ox 09/27/18 21:43 98.4 F 93 14 125/80 98 - Laboratory Lab Statement: Any lab studies that have been ordered have been reviewed, and results considered in the medical decision making process. - Radiology No standard instances Radiology Interpretation Completed By: ED Physician - No acute fracture Lower Extremity Course/Dx - Course Course Of Treatment: 20-year-old female presents with complaints of right foot pain. States she was playing with her children 3 days ago and jumped off a playground structure from a height of about 2-3 feet and had sudden onset of pain to the lateral aspect of her right foot. States she was able to bear weight immediately after the injury however states pain has progressively worsened over the last couple of days making it difficult to bear weight. Denies any swelling, bruising, numbness, or tingling. Afebrile. Vital signs stable. Patient had some mild tenderness to the lateral right foot over the fourth and fifth metatarsals without gross deformity, ecchymosis, or erythema. X-ray showed no acute fracture. Recommending conservative treatment for a right foot sprain. Patient was placed in a cam boot and provided crutches for progressive weightbearing. I'm also recommending [id number] analgesics and RICE. She is to follow-up with orthopedic surgery in 7 days if symptoms are not improving. Anticipatory guidance and warning signs reviewed with the patient. Verbalizes understanding and agrees with plan of care. - Diagnoses Differential Diagnosis/HQI/PQRI: Positive: Fracture (Closed), Sprain Provider Diagnoses: Right foot sprain Discharge - Sign-Out/Discharge Documenting (check all that apply): Patient Departure Patient Received Moderate/Deep Sedation with Procedure: No - Discharge Plan Condition: Stable Disposition: HOME Patient Education Materials: Foot Sprain (ED) Forms: *Work Release Referrals: No Primary Care Phys,NOPCP [Primary Care Provider] - Additional Instructions: The x-ray performed in the clinic today showed no evidence of a fracture. I suspect that you have a sprain of the foot. Rest the foot as much as possible. Wear the CAM boot that was applied in the emergency room for support until you are pain-free. You may walk and bear weight as tolerated. Use the crutches provided to slowly increase the amount of weight you put on the foot. Apply ice to the affected area for 15-20 minutes at least 4 times a day to help with the pain and swelling. Elevate the foot to help reduce swelling. Take acetaminophen (Tylenol) or ibuprofen (Advil, Motrin) according to directions as needed for pain. Follow up with orthopedic surgery in 7 days if symptoms do not improve. Seek immediate medical attention if you have severe pain not managed with pain medication, you are unable to walk or bear any weight, develop numbness or tingling in the _ or _, or have any worsening of symptoms. - Billing Disposition and Condition Condition: STABLE Disposition: Home
[2018-09-28 00:16] VITALS: BP 123/71
== END 2018-09-28 00:16 | disposition home or self-care (01) ==
LOC: ED 21:37
DX: S93.601A Unspecified sprain of right foot, initial encounter (principal); X58.XXXA Exposure to other specified factors, initial encounter; Y93.39 Activity, other involving climbing, rappelling and jumping off; D64.9 Anemia, unspecified; F32.9 Major depressive disorder, single episode, unspecified; Z88.0 Allergy status to penicillin; Z88.2 Allergy status to sulfonamides; Z88.8 Allergy status to other drugs, medicaments and biological substances; Z88.3 Allergy status to other anti-infective agents; Z87.891 Personal history of nicotine dependence
CPT/HCPCS: 99282

== ENCOUNTER 2018-11-13 20:34 | Emergency (ER) | payer OTHER ==
[2018-11-13 21:16] VITALS: BP 131/81
[2018-11-13] MEDS ORDERED: Ibuprofen TAB* 600 MG PO ONE (22:25)
[2018-11-13] MEDS ORDERED: Neomyc/Polym/HC 1% OTIC SUSP* **OTIC BOTH EARS ONE (22:25)
--- NOTE | 2018-11-13 22:27 | UC ---
Ear Complaint HPI - HPI Summary HPI Summary: 28-year-old female comes in with a chief complaint of bilateral ear pain. Started couple days ago. She's been swimming everyday for last 4 days in the [place]. Pains worse when she pushes on her tragi. No fevers or chills no runny nose no sore throat. She took some I performed which did help with the pain. No chest congestion no shortness of breath. - History of Current Complaint Chief Complaint: UCEar Stated Complaint: EAR PAIN Time Seen by Provider: 11/13/18 21:58 Hx Last Menstrual Period: [id number] Pain Intensity: 8 - Allergies/Home Medications Allergies/Adverse Reactions: Allergies Allergy/AdvReac Type Severity Reaction Status Date / Time cefaclor [From Ceclor] Allergy Hives Verified 11/13/18 21:16 Penicillins Allergy Hives Verified 11/13/18 21:16 Sulfa (Sulfonamide Allergy Anaphylatic Verified 11/13/18 21:16 Antibiotics) Shock sulfamethoxazole Allergy Anaphylatic Verified 11/13/18 21:16 [From Bactrim] Shock trimethoprim [From Bactrim] Allergy Anaphylatic Verified 11/13/18 21:16 Shock PMH/Surg Hx/FS Hx/Imm Hx Previously Healthy: Yes Other History Of: Negative For: Anticoagulant Therapy - Surgical History Surgical History: Yes Surgery Procedure, Year, and Place: X2, liz[place]. TUBAL LIGATION - Family History Known Family History: Positive: Unknown - unknown - adopted, Hypertension, Diabetes Negative: Cardiac Disease - Social History Alcohol Use: Weekly Substance Use Type: None Smoking Status (MU): Former Smoker Amount Used/How Often: 2 cig per day Have You Smoked in the Last Year: No Household Exposure Type: Cigarettes - Immunization History Most Recent Influenza Vaccination: 2014 Most Recent Tetanus Shot: 2014 Most Recent Pneumonia Vaccination: na Review of Systems All Other Systems Reviewed And Are Negative: Yes Constitutional: Positive: Negative Skin: Positive: Negative Eyes: Positive: Negative ENT: Positive: Ear Ache Respiratory: Positive: Negative Cardiovascular: Positive: Negative Gastrointestinal: Positive: Negative Motor: Positive: Negative Neurovascular: Positive: Negative Musculoskeletal: Positive: Negative Neurological: Positive: Negative Psychological: Positive: Negative Is Patient Immunocompromised?: No Physical Exam Triage Information Reviewed: Yes Appearance: Well-Appearing, No Pain Distress, Well-Nourished Vital Signs: Initial Vital Signs Temp 97.8 F 11/13/18 21:12 Pulse 86 11/13/18 21:12 Resp 16 11/13/18 21:12 BP 131/81 11/13/18 21:12 Pulse Ox 100 11/13/18 21:12 Vital Signs Reviewed: Yes Eye Exam: Normal Eyes: Positive: Conjunctiva Clear ENT: Positive: Pharynx normal, TMs normal, Other - Both tragus are tender to palpation. There is debris and some swelling in both ear canals. Neck: Positive: Supple Respiratory: Positive: Lungs clear, Normal breath sounds, No respiratory distress Cardiovascular: Positive: RRR Musculoskeletal Exam: Normal Musculoskeletal: Positive: Strength Intact, ROM Intact Neurological Exam: Normal Neurological: Positive: Alert, Muscle Tone Normal Psychological Exam: Normal Psychological: Positive: Age Appropriate Behavior Skin Exam: Normal Ear Complaint Course/Dx - Differential Dx/Diagnosis Provider Diagnosis: Otitis externa of both ears Discharge - Sign-Out/Discharge Documenting (check all that apply): Patient Departure All imaging exams completed and their final reports reviewed: No Studies - Discharge Plan Condition: Stable Disposition: HOME Patient Education Materials: Otitis Externa (ED) Referrals: [facility] [facility] [place] [facility] [Outside] Additional Instructions: FOLLOW UP WITH YOUR DOCTOR IF NOT COMPLETELY IMPROVED. GET RECHECKED SOONER IF YOUR CONDITION WORSENS OR ANY QUESTIONS OR CONCERNS. - Billing Disposition and Condition Condition: STABLE Disposition: Home
== END 2018-11-13 22:52 | disposition home or self-care (01) ==
LOC: UCEAST 20:34
DX: H60.93 Unspecified otitis externa, bilateral (principal); Z88.1 Allergy status to other antibiotic agents; Z88.0 Allergy status to penicillin; Z88.2 Allergy status to sulfonamides; Z87.891 Personal history of nicotine dependence
CPT/HCPCS: 99212; A9270-GY; G0463

== ENCOUNTER 2018-11-15 03:59 | Emergency (ER) | payer OTHER ==
--- NOTE | 2018-11-15 04:15 | ED ---
Throat Pain/Nasal Congestion - HPI Summary HPI Summary: Pt is a 28 y/o F presenting to the ED with a chief complaint of R-sided ear pain. She states she was seen at on 11/13/18 where she was dxed with swimmer s ear, but the pain worsened and her jaw on her R side began to swell on . She states she is losing her hearing and the pain is becoming unbearable. The ear drops that gave her have worked in her L ear, but have not worked in her R ear. - History of Current Complaint Chief Complaint: EDEarPain Time Seen by Provider: 11/15/18 04:04 Hx Obtained From: Patient Onset/Duration: Gradual Onset, Lasting Days, Still Present Severity: Moderate Cough: None - Allergies/Home Medications Allergies/Adverse Reactions: Allergies Allergy/AdvReac Type Severity Reaction Status Date / Time cefaclor [From Ceclor] Allergy Hives Verified 11/15/18 04:11 Penicillins Allergy Hives Verified 11/15/18 04:11 Sulfa (Sulfonamide Allergy Anaphylatic Verified 11/15/18 04:11 Antibiotics) Shock sulfamethoxazole Allergy Anaphylatic Verified 11/15/18 04:11 [From Bactrim] Shock trimethoprim [From Bactrim] Allergy Anaphylatic Verified 11/15/18 04:11 Shock PMH/Surg Hx/FS Hx/Imm Hx Previously Healthy: Yes Endocrine/Hematology History: Reports: Hx Anemia Denies: Hx Anticoagulant Therapy, Hx Blood Disorders, Hx Blood Transfusions, Hx Bone Marrow Disease, Hx Diabetes, Hx Systemic Lupus Erythematosus, Hx Sickle Cell Disease, Hx Thyroid Disease, Hx Unexplained Bleeding, Other Endocrine/ Hematological Disorders Cardiovascular History: Denies: Hx Hypertension, Hx Pacemaker/ICD Respiratory History: Reports: Hx Seasonal Allergies - on occasion Denies: Hx Asthma, Hx Chronic Obstructive Pulmonary Disease (COPD) GI History: Denies: Hx Ulcer History: Denies: Hx Renal Disease Musculoskeletal History: Denies: Hx Rheumatoid Arthritis, Hx Osteoporosis Sensory History: Reports: Hx Contacts or Glasses - wearing them at present Denies: Hx Hearing Aid Opthamlomology History: Reports: Hx Contacts or Glasses - wearing them at present Neurological History: Denies: Hx Dementia, Hx Developmental Delay, Hx Headaches, Hx Migraine, Hx Nerve Disease, Hx Seizures, Hx Spinal Cord Injury, Hx Transient Ischemic Attacks (TIA), Other Neuro Impairments/Disorders Psychiatric History: Reports: Hx Depression Denies: Hx Anxiety, Hx Attention Deficit Hyperactivity Disorder, Hx Eating Disorder, Hx Panic Disorder, Hx Post Traumatic Stress Disorder, Hx Inpatient Treatment, Hx Community Mental Health Tx, Hx Schizophrenia, Hx Bipolar Disorder , Hx Suicide Attempt, Hx of Violent Episodes Against Others, Hx Substance Abuse , Other Psychiatric Issues/Disorders - Surgical History Surgery Procedure, Year, and Place: X2, liz[place]. TUBAL LIGATION Hx Anesthesia Reactions: Yes - vomitting - Immunization History Date of Tetanus Vaccine: up to date per pt Infectious Disease History: No Infectious Disease History: Denies: Hx Clostridium Difficile, Hx Hepatitis, Hx Human Immunodeficiency Virus (HIV), Hx of Known/Suspected MRSA, Hx Shingles, Hx Tuberculosis, Hx Known/ Suspected VRE, Hx Known/Suspected VRSA, History Other Infectious Disease, Traveled Outside the [place] in Last 30 Days - Family History Known Family History: Positive: Unknown - unknown - adopted, Hypertension, Diabetes Negative: Cardiac Disease - Social History Alcohol Use: Occasionally Hx Substance Use: No Substance Use Type: Reports: None Hx Tobacco Use: Yes Smoking Status (MU): Former Smoker Amount Used/How Often: 2 cig per day Have You Smoked in the Last Year: No Review of Systems Positive: Ear Ache, Other - pain spreading through her jaw Positive: Edema - R side jaw All Other Systems Reviewed And Are Negative: Yes Physical Exam - Summary Physical Exam Summary: Appearance: Well-appearing, Well-nourished, lying in bed comfortable Skin: Warm, dry, no obvious rash Eyes: sclera anicteric, no conjunctival pallor ENT: mucous membranes moist Neck: The neck from about the mid SCM to the ear is very tender to palpation, though there is no visible swelling nor any induration or mass palpable. The patient flinches with even quite light touch to the area. There is pain on pulling on the ear. Respiratory: No signs of respiratory distress Cardiovascular: Appears well perfused, pulses are nml Abdomen: deferred Musculoskeletal: Moving all 4 extremities without obvious discomfort Neurological: Awake and alert, mentation is normal, speech is fluent and appropriate Psychiatric: affect is normal, does not appear anxious or depressed Triage Information Reviewed: Yes Vital Signs On Initial Exam: Initial Vitals Temp Pulse Resp BP Pulse Ox 98.3 F 93 20 123/74 100 11/15/18 04:00 11/15/18 04:00 11/15/18 04:00 11/15/18 04:00 11/15/18 04:00 Vital Signs Reviewed: Yes Diagnostics - Vital Signs Vital Signs Temp Pulse Resp BP Pulse Ox 11/15/18 04:00 98.3 F 93 20 123/74 100 - Laboratory Result Diagrams: 11/15/18 04:51 11/15/18 04:51 Lab Statement: Any lab studies that have been ordered have been reviewed, and results considered in the medical decision making process. - CT Neck CT CT Interpretation Completed By: Radiologist Summary of CT Findings: 1. Trace fluid is suggested in the right middle ear cavity which a reflect minimal otitis media. 2. Borderline bilateral cervical adenopathy. 3. Otherwise negative CT soft tissue neck. ED physician has reviewed this report. EENT Course/Dx - Course Course Of Treatment: Pt is a 28 y/o F presenting to the ED with a chief complaint of R-sided ear pain. She states she was seen at on 11/13/18 where she was dxed with swimmers ear, but the pain worsened and her jaw on her R side began to swell on 11/14/18. She states she is losing her hearing and the pain is becoming unbearable. The ear drops that gave her have worked in her L ear, but have not worked in her R ear. Despite the paucity of physical findings to suggest an infectious/inflammatory problem in the periauricular area and neck the patient does have quite severe pain and tenderness to palpation so out of an abundance of caution I have ordered a CT of the neck with contrast to make sure there is no deeper process leading to her pain. Neck CT shows: 1. Trace fluid is suggested in the right middle ear cavity which a reflect minimal otitis media. 2. Borderline bilateral cervical adenopathy. 3. Otherwise negative CT soft tissue neck. Pt will be d/c'ed with dx of otitis media. She is stable and agreeable with this plan. - Diagnoses Provider Diagnoses: Otitis media Discharge - Sign-Out/Discharge Documenting (check all that apply): Patient Departure Patient Received Moderate/Deep Sedation with Procedure: No - Discharge Plan Condition: Good Disposition: HOME Prescriptions: DOXYcycline CAP(*) [DOXYcycline 100MG CAP(*)] 100 mg PO BID #14 cap Referrals: Care [facility] [Outside] - 2 Days (if not improving) Additional Instructions: In addition to the oral antibiotic, continue using the ear drops - Billing Disposition and Condition Condition: GOOD Disposition: Home - Attestation Statements Document Initiated by Nata: Yes Documenting Scribe: Laurita Mae Provider For Whom Nata is Documenting (Include Credential): Usama Escobar MD. Scribe Attestation: Laurita Jama, scribed for Usama Escobar MD. on 11/17/18 at 0321. Scribe Documentation Reviewed: Yes Provider Attestation: The documentation as recorded by the Laurita davison accurately reflects the service I personally performed and the decisions made by , Usama Escobar MD. Status of Scribe Document: Viewed
[2018-11-15 04:58] LABS: ABS Basophils 0.1 10^3/ul (0-0.2); ABS Eosinophils 0.2 10^3/ul (0-0.6); ABS Lymphocytes 2.2 10^3/ul (1.0-4.8); ABS Monocytes 0.6 10^3/ul (0-0.8); ABS Neutrophils 5.3 10^3/ul (1.5-7.7); Eosinophil % 2.1 %; Hematocrit 37 % (35-47); Hemoglobin 12.5 g/dL (12.0-16.0); Lymphocyte % 26.8 %; Mean Corpuscular HGB Conc 34 g/dL (31-36); Mean Corpuscular Hemoglobin 26 pg (27-31); Mean Corpuscular Volume 76 fL (80-97); Mean Platelet Volume 8.9 fL (7.4-10.4); Nucleated Red Blood Cells % 0.2; Platelet Count 264 10^3/uL (150-450); Red Blood Count 4.86 10^6 /uL (3.70-4.87); Red Cell Distribution Width 15 % (10-15); White Blood Count 8.4 10^3/uL (3.5-10.8)
[2018-11-15 05:13] LABS: BUN/Creatinine Ratio 23.4 (8-20); Calcium 9.2 mg/dL (8.6-10.3); EGFR African American 133.7 (>60); EGFR Non-African American 110.5 (>60); Potassium 3.6 mmol/L (3.5-5.0)
[2018-11-15] MEDS ORDERED: Iohexol 300* (CONTRAST) 10 ML SDV IV ONE (05:21)
[2018-11-15 06:55] VITALS: BP 119/82
== END 2018-11-15 06:54 | disposition home or self-care (01) ==
LOC: ED 03:59
DX: H66.91 Otitis media, unspecified, right ear (principal); Z88.0 Allergy status to penicillin; Z88.2 Allergy status to sulfonamides; Z87.891 Personal history of nicotine dependence; R60.9 Edema, unspecified
CPT/HCPCS: 36415; 70491; 80048; 85025; 99282; Q9967

== ENCOUNTER 2019-01-14 18:19 | Emergency (ER) | payer OTHER ==
[2019-01-14 18:28] VITALS: BP 123/69
--- NOTE | 2019-01-14 18:45 | UC ---
Hip/Pelvis Pain - HPI Summary HPI Summary: Patient is a 28yo female presenting with right hip pain x3 weeks. She describes it as a dull aching pain with intermittent sharp pain. Notes decreased ROM due to pain. Rates the pain /10. Denies injury or fall. Says the pain radiates to lower back and groin area. Denies left sided pain. Denies urinary or BM changes. Denies abdominal pain. Denies anything like this before. Notes very little relief with ibuprofen. Last dose of ibuprofen was earlier this morning. - History Of Current Complaint Chief Complaint: UCLowerExtremity Stated Complaint: HIP PAIN Time Seen by Provider: 01/14/19 18:32 Hx Obtained From: Patient Hx Last Menstrual Period: [id number] Onset/Duration: Lasting Weeks Timing: Constant Severity Initially: Moderate Severity Currently: Moderate Pain Intensity: 7 Pain Scale Used: 0-10 Numeric - Allergies/Home Medications Allergies/Adverse Reactions: Allergies Allergy/AdvReac Type Severity Reaction Status Date / Time cefaclor [From Ceclor] Allergy Hives Verified 01/14/19 18:28 Penicillins Allergy Hives Verified 01/14/19 18:28 Sulfa (Sulfonamide Allergy Anaphylatic Verified 01/14/19 18:28 Antibiotics) Shock sulfamethoxazole Allergy Anaphylatic Verified 01/14/19 18:28 [From Bactrim] Shock trimethoprim [From Bactrim] Allergy Anaphylatic Verified 01/14/19 18:28 Shock PMH/Surg Hx/FS Hx/Imm Hx Other History Of: Negative For: Anticoagulant Therapy - Surgical History Surgical History: Yes Surgery Procedure, Year, and Place: X2, liz[place]. TUBAL LIGATION - Family History Known Family History: Positive: Unknown - unknown - adopted, Hypertension, Diabetes, Non-Contributory Negative: Cardiac Disease - Social History Alcohol Use: Rare Substance Use Type: None Smoking Status (MU): Former Smoker Amount Used/How Often: 2 cig per day Have You Smoked in the Last Year: No Household Exposure Type: Cigarettes - Immunization History Most Recent Influenza Vaccination: 2014 Most Recent Tetanus Shot: 2013 Most Recent Pneumonia Vaccination: na Review of Systems All Other Systems Reviewed And Are Negative: No Constitutional: Positive: Negative Gastrointestinal: Negative: Abdominal Pain, Vomiting, Diarrhea Genitourinary: Positive: Negative. Negative: Dysuria Motor: Positive: Decreased ROM - right hip/leg Neurovascular: Negative: Decreased Sensation, Decreased Pulses Musculoskeletal: Positive: Decreased ROM. Negative: Calf Tenderness Physical Exam Triage Information Reviewed: Yes Appearance: Well-Appearing, Well-Nourished, Pain Distress - sitting uncomfortably and shifting weight onto left side Vital Signs: Initial Vital Signs Temp 98.7 F 01/14/19 18:25 Pulse 81 01/14/19 18:25 Resp 18 01/14/19 18:25 BP 123/69 01/14/19 18:25 Pulse Ox 100 01/14/19 18:25 Vital Signs Reviewed: Yes Abdominal Exam: Normal Musculoskeletal: Positive: Strength Limited @ - plantar and dorsiflexion of right foot, ROM Limited @ - internal and external rotation of right hip, Other: - tenderness to palpation of right hip, right lower back, and right side of groin Psychological Exam: Normal Diagnostics - Radiology hip Radiology Interpretation Completed By: ED Physician Summary of Radiographic Findings: no fracture lumbar Radiology Interpretation Completed By: ED Physician Summary of Radiographic Findings: no fracture Hip Injury Course/Dx - Course Course Of Treatment: Discussed negative lumbar and hip xrays with the patient. Informed that she will be notified if radiologist report differs from wet read. Patient given IM toradol once. She was instructed to take Flexeril as directed to help relieve pain. If pain persists or worsens she is to follow up with her primary care physician or orthopedic referral. Patient voiced understanding and agreed to treatment plan. - Differential Dx/Diagnosis Provider Diagnosis: Hip pain, right Discharge ED - Sign-Out/Discharge Documenting (check all that apply): Patient Departure All imaging exams completed and their final reports reviewed: No - Discharge Plan Condition: Stable Disposition: HOME Prescriptions: Cyclobenzaprine TAB* [Flexeril 10 MG TAB*] 10 mg PO BID 7 Days #14 tab Patient Education Materials: Hip Pain (ED) Referrals: Boaz Coello MD [Medical Doctor] - Additional Instructions: Take Flexeril as directed for hip pain. Follow up with primary care physician or orthopedics if pain persists or worsens. - Billing Disposition and Condition Condition: STABLE Disposition: Home
[2019-01-14] MEDS ORDERED: Ketorolac *IM* INJ* 60 MG/2 ML VIAL IM ONE (18:49)
--- NOTE | 2019-01-15 10:17 | UC ---
- Progress Note Progress Note: wet read correct Course/Dx - Diagnoses Provider Diagnoses: Hip pain, right Discharge ED - Sign-Out/Discharge Documenting (check all that apply): Post-Discharge Follow Up All imaging exams completed and their final reports reviewed: Yes - Discharge Plan Condition: Stable Disposition: HOME Prescriptions: Cyclobenzaprine TAB* [Flexeril 10 MG TAB*] 10 mg PO BID 7 Days #14 tab Patient Education Materials: Hip Pain (ED) Referrals: Boaz Coello MD [Medical Doctor] - Additional Instructions: Take Flexeril as directed for hip pain. Follow up with primary care physician or orthopedics if pain persists or worsens. - Billing Disposition and Condition Condition: STABLE Disposition: Home
--- NOTE | 2019-01-15 10:17 | UC ---
- Progress Note Progress Note: Reviewed LumbarSacral xray reports and Hip 2view plus pelvis reports from last evening. Reports in [facility]. No management changes as this time. Course/Dx - Diagnoses Provider Diagnoses: Hip pain, right Discharge ED - Sign-Out/Discharge Documenting (check all that apply): Post-Discharge Follow Up All imaging exams completed and their final reports reviewed: Yes - Discharge Plan Condition: Stable Disposition: HOME Prescriptions: Cyclobenzaprine TAB* [Flexeril 10 MG TAB*] 10 mg PO BID 7 Days #14 tab Patient Education Materials: Hip Pain (ED) Referrals: Boaz Coello MD [Medical Doctor] - Additional Instructions: Take Flexeril as directed for hip pain. Follow up with primary care physician or orthopedics if pain persists or worsens. - Billing Disposition and Condition Condition: STABLE Disposition: Home
== END 2019-01-14 19:30 | disposition home or self-care (01) ==
LOC: UCEAST 18:19
DX: M25.551 Pain in right hip (principal); Z88.0 Allergy status to penicillin; Z88.2 Allergy status to sulfonamides; Z87.891 Personal history of nicotine dependence
CPT/HCPCS: 72110; 96372; 99212; G0463; J1885

== ENCOUNTER 2019-05-07 15:13 | Emergency (ER) | payer OTHER ==
[2019-05-07 15:26] VITALS: BP 124/74
--- NOTE | 2019-05-07 15:28 | UC ---
Hand/Wrist HPI - HPI Summary HPI Summary: 29 yo female presents with elbow injury. She tells me that just [employer] she was skating with her sons and was checked into the boards. Pt fell and landed on her left forearm/elbow. Since that time has pain to this area that is worse with movement. Feels some tingling sensations going down from her elbow to her hand. Nothing OTC for discomfort. She is right handed. - History Of Current Complaint Chief Complaint: UCUpperExtremity Stated Complaint: ARM INJURY Time Seen by Provider: 05/07/19 15:27 Hx Obtained From: Patient Hx Last Menstrual Period: 04/28/19 Severity Initially: Moderate Severity Currently: Moderate Pain Intensity: 6 - Allergies/Home Medications Allergies/Adverse Reactions: Allergies Allergy/AdvReac Type Severity Reaction Status Date / Time cefaclor [From Ceclor] Allergy Hives Verified 05/07/19 15:27 Penicillins Allergy Hives Verified 05/07/19 15:27 Sulfa (Sulfonamide Allergy Anaphylatic Verified 05/07/19 15:27 Antibiotics) Shock sulfamethoxazole Allergy Anaphylatic Verified 05/07/19 15:27 [From Bactrim] Shock trimethoprim [From Bactrim] Allergy Anaphylatic Verified 05/07/19 15:27 Shock PMH/Surg Hx/FS Hx/Imm Hx - Additional Past Medical History Additional PMH: None Other History Of: Negative For: Anticoagulant Therapy - Surgical History Surgical History: Yes Surgery Procedure, Year, and Place: X2, liz[place]. TUBAL LIGATION - Family History Known Family History: Positive: Unknown - unknown - adopted Negative: Cardiac Disease - Social History Lives: With Family Alcohol Use: Rare Substance Use Type: None Smoking Status (MU): Former Smoker Amount Used/How Often: 2 cig per day Have You Smoked in the Last Year: No When Did the Patient Quit Smoking/Using Tobacco: 4 years ago Household Exposure Type: Cigarettes - Immunization History Most Recent Influenza Vaccination: 2014 Most Recent Tetanus Shot: 2013 Most Recent Pneumonia Vaccination: na Review of Systems All Other Systems Reviewed And Are Negative: No Constitutional: Positive: Negative Skin: Positive: Negative Respiratory: Positive: Negative Cardiovascular: Positive: Negative Musculoskeletal: Positive: Other: - Left forearm injury Neurological: Positive: Negative Psychological: Positive: Negative Physical Exam - Summary Physical Exam Summary: GENERAL: NAD. WDWN. No pain distress. SKIN: No rashes, sores, lesions, or open wounds. CHEST: No accessory muscle use. Breathing comfortably and in no distress. CV: Pulses intact radial and ulnar. Cap refill <2seconds MSK: LEFT ELBOW: Moderate TTP about proximal forearm and inferior elbow with specific point tenderness. Pain with flexion of elbow and supination of forearm. LEFT WRIST FROM and nttp. NEURO: Alert. Sensations intact hand and all fingers. PSYCH: Age appropriate behavior. Triage Information Reviewed: Yes Vital Signs: Initial Vital Signs Temp 97.7 F 05/07/19 15:21 Pulse 86 05/07/19 15:21 Resp 16 05/07/19 15:21 BP 124/74 05/07/19 15:21 Pulse Ox 100 05/07/19 15:21 Vital Signs Reviewed: Yes Diagnostics - Radiology elbow Radiology Interpretation Completed By: Radiologist Summary of Radiographic Findings: IMPRESSION: NO EVIDENCE FOR FRACTURE. forearm Radiology Interpretation Completed By: Radiologist Summary of Radiographic Findings: IMPRESSION: NO EVIDENCE FOR FRACTURE. Hand/Wrist Course/Dx - Course Course Of Treatment: XR as above. Pt placed in a sling for comfort. Advised to rest, ice, and elevate to decrease pain F/u if symptoms do not improve - Differential Dx/Diagnosis Provider Diagnosis: Contusion Discharge ED - Sign-Out/Discharge Documenting (check all that apply): Patient Departure All imaging exams completed and their final reports reviewed: Yes - Discharge Plan Condition: Stable Disposition: HOME Patient Education Materials: Contusion in Adults (ED) Forms: *Work Release Referrals: No Primary Care Phys,NOPCP [Primary Care Provider] - Additional Instructions: If you develop a fever, shortness of breath, chest pain, new or worsening symptoms - please call your PCP or go to the ED immediately. Your X-rays were normal today. Rest, ice, and elevate your elbow to decrease pain and swelling May take tylenol/ibuprofen as directed for discomfort - Billing Disposition and Condition Condition: STABLE Disposition: Home
== END 2019-05-07 16:18 | disposition home or self-care (01) ==
LOC: UCEAST 15:13
DX: S50.02XA Contusion of left elbow, initial encounter (principal); Z88.1 Allergy status to other antibiotic agents; Z88.0 Allergy status to penicillin; Z88.2 Allergy status to sulfonamides; Z87.891 Personal history of nicotine dependence; V00.131A Fall from skateboard, initial encounter; Y93.21 Activity, ice skating; Y92.9 Unspecified place or not applicable
CPT/HCPCS: 99211; G0463

== ENCOUNTER 2019-05-10 20:55 | Emergency (ER) | payer BC, OTHER ==
[2019-05-10 21:05] VITALS: BP 140/86
[2019-05-10] MEDS ORDERED: Tetan/Diph/Pertus SYR(Tdap)* 0.5 ML SYR(BOOSTRIX) use SYR contains LATEX IM ONE (21:09)
--- NOTE | 2019-05-10 21:10 | UC ---
Laceration HPI - HPI Summary HPI Summary: 29 year old who nicked the top of her left hand fourth digit with a pair of scissors. Last tetanus uncertain. - History Of Current Complaint Chief Complaint: UCLaceration Stated Complaint: FINGER LAC Time Seen by Provider: 05/10/19 21:04 Hx Obtained From: Patient Hx Last Menstrual Period: 04/28/19 Mechanism Of Injury: Sharp Trauma Onset/Duration: Sudden Onset Pain Intensity: 8 Related History: Dominant Hand Right - Allergies/Home Medications Allergies/Adverse Reactions: Allergies Allergy/AdvReac Type Severity Reaction Status Date / Time cefaclor [From Ceclor] Allergy Hives Verified 05/10/19 21:05 Penicillins Allergy Hives Verified 05/10/19 21:05 Sulfa (Sulfonamide Allergy Anaphylatic Verified 05/10/19 21:05 Antibiotics) Shock sulfamethoxazole Allergy Anaphylatic Verified 05/10/19 21:05 [From Bactrim] Shock trimethoprim [From Bactrim] Allergy Anaphylatic Verified 05/10/19 21:05 Shock Home Medications: Home Medications NK [No Home Medications Reported] 05/10/19 [History Confirmed 05/10/19] PMH/Surg Hx/FS Hx/Imm Hx Previously Healthy: Yes - overweight Other History Of: Negative For: Anticoagulant Therapy - Surgical History Surgical History: Yes Surgery Procedure, Year, and Place: X2, liz[place]. TUBAL LIGATION - Family History Known Family History: Positive: Unknown - unknown - adopted Negative: Cardiac Disease - Social History Occupation: Employed Full-time Lives: With Family Alcohol Use: Rare Substance Use Type: None Smoking Status (MU): Former Smoker Amount Used/How Often: 2 cig per day Have You Smoked in the Last Year: No When Did the Patient Quit Smoking/Using Tobacco: 4 years ago Household Exposure Type: Cigarettes - Immunization History Most Recent Influenza Vaccination: 2014 Most Recent Tetanus Shot: 2014 Most Recent Pneumonia Vaccination: na Review of Systems All Other Systems Reviewed And Are Negative: Yes Constitutional: Positive: Negative Skin: Positive: Other - laceration Eyes: Positive: Negative ENT: Positive: Negative Respiratory: Positive: Negative Cardiovascular: Positive: Negative Gastrointestinal: Positive: Negative Genitourinary: Positive: Negative Musculoskeletal: Positive: Other: - recent contusion to the left arm Neurological: Positive: Negative Psychological: Positive: Negative Is Patient Immunocompromised?: No Physical Exam Triage Information Reviewed: Yes Appearance: Well-Appearing, Pain Distress - mild to moderate Vital Signs: Initial Vital Signs Temp 98.4 F 05/10/19 21:02 Pulse 95 05/10/19 21:02 Resp 18 05/10/19 21:02 BP 140/86 05/10/19 21:02 Pulse Ox 99 05/10/19 21:02 Eye Exam: Normal Neck exam: Normal Respiratory Exam: Normal Cardiovascular Exam: Normal Musculoskeletal Exam: Normal Neurological Exam: Normal Psychological Exam: Normal Skin Exam: Other - 1 cm laceration with flap of skin, base of flap about 5 mm and fleshy. Laceration Repair - Laceration Repair 1 Description: Linear - curvilinear 1 cm wound Laceration Size After Repair: Length (cm) - 1 cm Modified For Repair: No - No anaesthesia used--single suture to tack flap Cleansing Completed Via Routine Prep: Yes Irrigation With Pressure Irrigation Device: Yes Closure Material: Sutures - 1 suture of 4-0 prolene Closure Method: Single Layer Suture Of: Skin Suture Type: Prolene Laceration Course/Dx - Course/Dx Course Of Treatment: Boostrix given. single suture applied to tack the flap down . - Differential Dx - Laceration/Wound Differental Diagnoses: Laceration - Diagnosis Provider Diagnosis: Laceration of finger of left hand Discharge ED - Sign-Out/Discharge Documenting (check all that apply): Patient Departure All imaging exams completed and their final reports reviewed: No Studies - Discharge Plan Condition: Stable Disposition: HOME Patient Education Materials: Finger Laceration (ED), Diphtheria/Pertussis/ Tetanus Vaccine (By injection) Forms: *Work Release Referrals: No Primary Care Phys,NOPCP [Primary Care Provider] - Additional Instructions: A single stitch was applied to tack down the flap. Please keep the wound clean and dry, and use topical antibiotic on the wound.. You have had a tetanus booster today--effective for 10 years. Your work release has been extended due to the type of work you do and continued pain in the left arm. - Billing Disposition and Condition Condition: STABLE Disposition: Home
[2019-05-10] MEDS ORDERED: Ibuprofen TAB* 600 MG PO ONE (21:11)
== END 2019-05-10 21:55 | disposition home or self-care (01) ==
LOC: UCEAST 20:55
DX: S61.215A Laceration without foreign body of left ring finger without damage to nail, initial encounter (principal); Z88.0 Allergy status to penicillin; Z88.2 Allergy status to sulfonamides; Z88.1 Allergy status to other antibiotic agents; Z87.891 Personal history of nicotine dependence; W27.2XXA Contact with scissors, initial encounter; Y92.9 Unspecified place or not applicable
CPT/HCPCS: 12001; 90715; 99211; A9270-GY; G0463

== ENCOUNTER 2019-05-14 11:12 | Emergency (ER) | payer BC ==
[2019-05-14 12:35] VITALS: BP 125/74
--- NOTE | 2019-05-14 13:06 | UC ---
Skin Complaint HPI - HPI Summary HPI Summary: 29 y/o female presents to the urgent care c/o left ring finger redness, swelling and painful s/p laceration on 05/10/2019. Pt reports she cuts her tip of her left ring finger w/ a knife and she has laceration repair done here at the clinic. One suture was placed to close the flap. Pt thinks it is getting infected w/ difficulty bending it due to swelling and painful to touch. Pain is 6/10. Pt has to do a lot of heavy lifting at work and this has made it worse. Pt denies fever, discharge, numbness or tingling sensation over the left ring finger, SOB, chest pain, abdominal pain, N/V/D. - History of Current Complaint Chief Complaint: UCSkin Time Seen by Provider: 05/14/19 12:56 Stated Complaint: RECHECK FINGER INJURY Hx Obtained From: Patient Hx Last Menstrual Period: 04/13/19 Onset/Duration: Gradual Onset, Lasting Days - 4 days, Still Present, Worse Since - yesterday Skin Exposure Onset/Duration: Days Ago - 4 days ago Timing: Constant Onset Severity: Mild Current Severity: Moderate Pain Intensity: 6 Pain Scale Used: 0-10 Numeric Location: Discrete - redness and swelling at the tip of left ring around laceration repair Character: Swelling, Redness, Painful Aggravating Factor(s): Touch Alleviating Factor(s): Nothing Associated Signs & Symptoms: Positive: Rash - redness and swelling at the tip of left ring around laceration repair, Tenderness. Negative: Nausea, Vomiting, Numbness, Fever, Chills, Drainage, Red Streaks Related History: Other: - finger laceration - Allergy/Home Medications Allergies/Adverse Reactions: Allergies Allergy/AdvReac Type Severity Reaction Status Date / Time cefaclor [From Ceclor] Allergy Hives Verified 05/14/19 12:35 Penicillins Allergy Hives Verified 05/14/19 12:35 Sulfa (Sulfonamide Allergy Anaphylatic Verified 05/14/19 12:35 Antibiotics) Shock sulfamethoxazole Allergy Anaphylatic Verified 05/14/19 12:35 [From Bactrim] Shock trimethoprim [From Bactrim] Allergy Anaphylatic Verified 05/14/19 12:35 Shock Home Medications: Home Medications Ibuprofen TAB* [Advil TAB*] 200 mg PO Q6H PRN 05/14/19 [History Confirmed ] PMH/Surg Hx/FS Hx/Imm Hx Previously Healthy: Yes - Pt denies PMHX Other History Of: Negative For: Anticoagulant Therapy - Surgical History Surgical History: Yes Surgery Procedure, Year, and Place: X2, l[place]. TUBAL LIGATION - Family History Known Family History: Positive: Unknown - unknown - adopted Negative: Cardiac Disease - Social History Occupation: Employed Full-time Lives: With Family Alcohol Use: Rare Substance Use Type: None Smoking Status (MU): Former Smoker Amount Used/How Often: 2 cig per day Have You Smoked in the Last Year: No When Did the Patient Quit Smoking/Using Tobacco: 4 years ago Household Exposure Type: Cigarettes - Immunization History Most Recent Influenza Vaccination: 2014 Most Recent Tetanus Shot: 2019 Most Recent Pneumonia Vaccination: na Review of Systems All Other Systems Reviewed And Are Negative: Yes Constitutional: Positive: Negative Skin: Positive: Other - redness and swelling at the tip of left ring around laceration repair Eyes: Positive: Negative ENT: Positive: Negative Respiratory: Positive: Negative Cardiovascular: Positive: Negative Gastrointestinal: Positive: Negative Genitourinary: Positive: Negative Motor: Positive: Negative Neurovascular: Positive: Negative Musculoskeletal: Positive: Decreased ROM - left ring finger, Other: - left ring finger pain s/p laceration Neurological: Positive: Negative Psychological: Positive: Negative Is Patient Immunocompromised?: No Physical Exam - Summary Physical Exam Summary: Vital Signs Reviewed: Yes General: well appearing, well nourished female in no acute apparent pain distress, sitting comfortably on examining table Eye Exam: Normal Eyes: Positive: Conjunctiva Clear - PERRLA< EOMI, fundi grossly normal ENT: Positive: Normal ENT inspection, Hearing grossly normal, Pharynx normal, TMs normal Neck: Positive: Supple, Nontender, No Lymphadenopathy Respiratory: Positive: Chest non-tender, Lungs clear, Normal breath sounds, No respiratory distress Cardiovascular: Positive: RRR, No Murmur, Pulses Normal, Brisk Capillary Refill Abdomen Description: Positive: Nontender, No Organomegaly, Soft. Negative: CVA Tenderness (R), CVA Tenderness (L) Bowel Sounds: Positive: Present Musculoskeletal: Positive: Strength Intact, ROM Intact, No Edema Neurological: Positive: Alert, Muscle Tone Normal Psychological Exam: Normal Skin: Positive: Positive erythematous discrete patch around laceration repair at the distal palmar side 4th left phalanx w/ indistinct borders, warm and tender to palpation, no drainage observed, mild swelling. pulses WNL, capillary refill brisk, sensation WNL. Triage Information Reviewed: Yes Vital Signs: Initial Vital Signs Temp 97.8 F 05/14/19 12:30 Pulse 79 05/14/19 12:30 Resp 16 05/14/19 12:30 BP 125/74 05/14/19 12:30 Pulse Ox 100 05/14/19 12:30 Course/Dx - Course Course Of Treatment: 29 y/o female presents to the urgent care c/o left ring finger redness, swelling and painful s/p laceration on 05/10/2019. Pt reports she cuts her tip of her left ring finger w/ a knife and she has laceration repair done here at the clinic. One suture was placed to close the flap. Pt thinks it is getting infected w/ difficulty bending it due to swelling and painful to touch. Pain is 5/10. Pt has to do a lot of heavy lifting at work and this has made it worse. Pt denies fever, discharge, numbness or tingling sensation over the left ring finger, SOB, chest pain, abdominal pain, N/V/D. Hx obtained. Pt w/ tip of the left 4th phalanx w/ discrete cellulitis around laceration repair on examination. Pt allergic to multiple antibiotics. Rx Clindamycin and Bacitracin topical cream as directed below marker and Advised if rash doubles in size and if she develops a fever to go to the ER for further treatment. D/C instructions explained. Pt understood and agreed. - Differential Diagnoses - Skin Complaint Differential Diagnoses: Abscess, Allergic Reaction, Cellulitis, Contact Dermatitis, Impetigo, Local Allergic Reaction, MRSA - Diagnoses Provider Diagnosis: Infected finger laceration Discharge ED - Sign-Out/Discharge Documenting (check all that apply): Patient Departure - D/c jpo,e All imaging exams completed and their final reports reviewed: No Studies - Discharge Plan Condition: Stable Disposition: HOME Prescriptions: Bacitracin OINTMENT* 1 applic TOPICAL TID #1 tube Clindamycin Cap(NF) [Clindamycin Cap 300 mg Cap(NF)] 300 mg PO TID #21 cap Patient Education Materials: Wound Infection (DC) Forms: *Work Release Referrals: [facility] [Outside] Additional Instructions: 1-Please take full course of Antibiotic. Please take yogurts w/ probiotics or culturelle to protect your GI system 2- If redness and swelling doubles in size after 48 hrs of taking antibiotic and fever develops pleasereturnt to the urgent care immediately 3-Avoid standing too much flexing your finger, keep it elevated and keep wound clean and dry. 4-Please F/u with your PCP or here in 4 days for suture removal and further evaluation and treatment. - Billing Disposition and Condition Condition: STABLE Disposition: Home
== END 2019-05-14 13:33 | disposition home or self-care (01) ==
LOC: UCEAST 11:12
DX: S61.215D Laceration without foreign body of left ring finger without damage to nail, subsequent encounter (principal); Z88.1 Allergy status to other antibiotic agents; Z88.0 Allergy status to penicillin; Z88.2 Allergy status to sulfonamides; Z79.891 Long term (current) use of opiate analgesic; X58.XXXD Exposure to other specified factors, subsequent encounter
CPT/HCPCS: 99212; G0463

== ENCOUNTER 2021-03-21 18:39 | Inpatient (IN) ==
[2021-03-21] MEDS ORDERED: Morphine 10 MG/ML VIAL (1 ml) IV ONE (19:14)
[2021-03-21] MEDS ORDERED: NS 0.9% 1000 ml BAG 2,000 ML IV ONE (19:14)
[2021-03-21] MEDS ORDERED: metroNIDAZOLE IV 500 MG/100ML 500 MG/100 ML BAG IVPB ONE (19:18)
[2021-03-21] MEDS ORDERED: cefTRIAXone 1 gm/50 mL NS BAG 1 GM/50 ML BAG IV ONE (19:18)
[2021-03-21] MEDS ORDERED: Al Hydrox/Mg Hydrox/Simet LIQ 30 ML UDC PO PRN (21:47)
[2021-03-21] MEDS ORDERED: NS 0.9% 1000 ml BAG 1,000 ML IV SCH (22:00)
[2021-03-21] MEDS: Ondansetron 4 mg VIAL 2 MG/ML 2 ml VIAL IV PRN (22:09)
[2021-03-21 22:10] LABS: ABS Eosinophils 0.2 10^3/ul (0-0.6); ABS Lymphocytes 2.3 10^3/ul (1.0-4.8); ABS Monocytes 0.6 10^3/ul (0-0.8); ABS Neutrophils 6.5 10^3/ul (1.5-7.7); Hematocrit 33 % (35-47); Hemoglobin 11.3 g/dL (12.0-16.0); Lymphocyte % 23.6 %; Mean Corpuscular HGB Conc 34 g/dL (31-36); Mean Corpuscular Hemoglobin 27 pg (27-31); Mean Corpuscular Volume 78 fL (80-97); Mean Platelet Volume 8.7 fL (7.4-10.4); Platelet Count 240 10^3/uL (150-450); Red Blood Count 4.25 10^6 /uL (3.70-4.87); Red Cell Distribution Width 14 % (10-15); White Blood Count 9.6 10^3/uL (3.5-10.8)
[2021-03-21 22:25] LABS: Rapid COVID-19 Molecular Undetected (Undetected)
[2021-03-21 22:27] LABS: Albumin 3.5 g/dL (3.2-5.2); Albumin/Globulin Ratio 1.1 (1-3); Calcium 8.5 mg/dL (8.6-10.3); Globulin 3.3 g/dL (2-4); Potassium 3.3 mmol/L (3.5-5.0); Total Bilirubin 0.6 mg/dL (0.2-1.0); Total Protein 6.8 g/dL (6.4-8.9)
[2021-03-21] MEDS ORDERED: NS 0.9% w/ 40 Meq KCL 1000 ML 1,000 ML IV SCH (23:00)
[2021-03-22] MEDS: metroNIDAZOLE IV 500 MG/100ML 500 MG/100 ML BAG IVPB SCH ×3 (03:17→21:23)
[2021-03-22 04:59] LABS: ABS Eosinophils 0.2 10^3/ul (0-0.6); ABS Lymphocytes 1.8 10^3/ul (1.0-4.8); ABS Monocytes 0.4 10^3/ul (0-0.8); ABS Neutrophils 4.6 10^3/ul (1.5-7.7); Eosinophil % 2.2 %; Hematocrit 35 % (35-47); Hemoglobin 11.5 g/dL (12.0-16.0); Lymphocyte % 25.4 %; Mean Corpuscular HGB Conc 33 g/dL (31-36); Mean Corpuscular Hemoglobin 26 pg (27-31); Mean Corpuscular Volume 78 fL (80-97); Mean Platelet Volume 8.8 fL (7.4-10.4); Platelet Count 245 10^3/uL (150-450); Red Blood Count 4.45 10^6 /uL (3.70-4.87); Red Cell Distribution Width 15 % (10-15); White Blood Count 6.9 10^3/uL (3.5-10.8)
[2021-03-22] MEDS: Ondansetron 4 mg VIAL 2 MG/ML 2 ml VIAL IV PRN ×2 (05:12→20:56)
[2021-03-22 05:17] LABS: Albumin 3.6 g/dL (3.2-5.2); Albumin/Globulin Ratio 1.2 (1-3); Calcium 8.5 mg/dL (8.6-10.3); Potassium 3.4 mmol/L (3.5-5.0); Total Bilirubin 0.6 mg/dL (0.2-1.0); Total Protein 6.6 g/dL (6.4-8.9)
[2021-03-22] MEDS ORDERED: KCL 20 MEQ/100 ML IVPREMIX 20 MEQ/100 ML BAG IV SCH (10:00)
[2021-03-22] MEDS ORDERED: cefTRIAXone 1 gm/50 mL NS BAG 1 GM/50 ML BAG IVPB SCH (20:00)
[2021-03-23] MEDS: metroNIDAZOLE IV 500 MG/100ML 500 MG/100 ML BAG IVPB SCH (03:53)
[2021-03-23 08:36] LABS: ABS Eosinophils 0.2 10^3/ul (0-0.6); ABS Lymphocytes 1.6 10^3/ul (1.0-4.8); ABS Monocytes 0.3 10^3/ul (0-0.8); ABS Neutrophils 3.3 10^3/ul (1.5-7.7); Eosinophil % 3.3 %; Hematocrit 37 % (35-47); Hemoglobin 12.4 g/dL (12.0-16.0); Lymphocyte % 29.2 %; Mean Corpuscular HGB Conc 34 g/dL (31-36); Mean Corpuscular Hemoglobin 26 pg (27-31); Mean Corpuscular Volume 78 fL (80-97); Mean Platelet Volume 8.6 fL (7.4-10.4); Nucleated Red Blood Cells % 0.1; Platelet Count 284 10^3/uL (150-450); Red Blood Count 4.71 10^6 /uL (3.70-4.87); Red Cell Distribution Width 14 % (10-15); White Blood Count 5.4 10^3/uL (3.5-10.8)
[2021-03-23 08:54] LABS: Calcium 9.1 mg/dL (8.6-10.3); Potassium 3.9 mmol/L (3.5-5.0)
[2021-03-23 14:32] VITALS: BP 136/80
== END 2021-03-23 14:50 | disposition home or self-care (01) | DRG 244 ==
LOC: ED 18:39 → EDHOLD 21:47 → MED 22:26
PROVIDERS: ADMIT Internal Medicine; ATTEND Internal Medicine